=== PATIENT | female | born 1975 | race Caucasian/White ===

== ENCOUNTER 2022-06-08 17:13 | Emergency (ER) | payer OTHER ==
[~2022-06-08] VITALS: Ht 154.9 cm; Wt 57.6 kg
[2022-06-08 17:25] VITALS: BP 155/94
--- NOTE | 2022-06-08 17:30 | NUR ---
PT AMB TO ER BED 12 UA CUP GIVEN
--- NOTE | 2022-06-08 17:40 | NUR ---
47 y/o female bib self from home, pt presents to ed with c/o anxiety and numbness in left foot today. pt states she saw her blood glucose was high at home and started becoming very anxious. denies nausea, vomiting, diarrhea. skin is pink/warm/dry. a&o x4 with even and steady gait. lungs clear bl, heart rate even and regular. pt denies dysuria, hematuria, urinary frequency or retention, or anyone sick in the household with the same symptoms. pt denies any fever, cp, sob, or cough at this time. patient positioned for comfort. hob elevated. bed down. ermd made aware of pt. phm: dm2, htn allergy: denies
[2022-06-08] MEDS ORDERED: METF-346 PO (17:50)
[2022-06-08] MEDS ORDERED: LISI-486 PO (17:50)
[2022-06-08] MEDS ORDERED: ROSU20TA1 PO (17:50)
[2022-06-08] MEDS ORDERED: IBUP-2213 PO (18:55)
[2022-06-08] MEDS ORDERED: CIPR500T4 PO (18:55)
[2022-06-08] MEDS ORDERED: ATA25 PO (18:55)
[2022-06-08 19:16] VITALS: BP 155/94
--- NOTE | 2022-06-08 19:17 | NUR ---
Patient discharged with v/s stable. Written and verbal after care instructions given and explained. Patient alert, oriented and verbalized understanding of instructions. Ambulatory with steady gait. All questions addressed prior to discharge. ID band removed. Patient advised to follow up with PMD. Rx of atarax, cipro, ibuprofen (sent) given. Patient educated on indication of medication including possible reaction and side effects. Opportunity to ask questions provided and answered.
== END 2022-06-08 19:12 | disposition home or self-care (01) ==
LOC: MED 17:13
DX: E11.65 Type 2 diabetes mellitus with hyperglycemia (principal); F41.9 Anxiety disorder, unspecified; N39.0 Urinary tract infection, site not specified; I10 Essential (primary) hypertension; Z79.899 Other long term (current) drug therapy
CPT/HCPCS: 81002; 93005; 99283